=== PATIENT | female | born 1970 | race Caucasian/White ===

== ENCOUNTER 2017-10-09 15:53 | Emergency (ER) | payer OTHER ==
[~2017-10-09] VITALS: Ht 170.2 cm; Wt 81.8 kg
[2017-10-09] MEDS ORDERED: LISI10TA7 PO (16:06)
[2017-10-09] MEDS ORDERED: FOLI1TAB15 PO (16:06)
[2017-10-09] MEDS ORDERED: FERR325T22 PO (16:06)
[2017-10-09] MEDS ORDERED: CHOL500045 PO (16:06)
[2017-10-09] MEDS ORDERED: IBUPROFEN 600 MG TABLET PO ONE (16:30)
[2017-10-09 16:51] LABS: BASOPHILS % (AUTO) 1.1 % (0.0-2.0); EOSINOPHILS % (AUTO) 4.8 % (1.0-6.0); HEMATOCRIT 23.6 % (36-46); HEMOGLOBIN 7.9 g/dL (12.0-16.0); LYMPHOCYTES # (AUTO) 1.9 K/uL (1.0-4.8); LYMPHOCYTES % (AUTO) 29.5 % (22.0-44.0); MEAN CORPUSCULAR HEMOGLOBIN 23.4 pg (26.0-34.0); MEAN CORPUSCULAR HGB CONC 33.6 G/dL (31.0-37.0); MEAN CORPUSCULAR VOLUME 70 fL (80-100); MONOCYTES # (AUTO) 0.7 K/uL (0.1-1.0); MONOCYTES % (AUTO) 11.2 % (2.0-9.0); NEUTROPHILS # (AUTO) 3.4 K/uL (1.8-7.7); NEUTROPHILS % (AUTO) 53.4 % (40.0-70.0); PLATELET COUNT (AUTO) 376 K/uL (150-450); RED BLOOD CELL COUNT(AUTO) 3.39 MIL/uL (4.00-5.20)
[2017-10-09 17:24] VITALS: BP 135/78
== END 2017-10-09 17:39 | disposition home or self-care (01) ==
LOC: EMS 15:54
DX: N93.8 Other specified abnormal uterine and vaginal bleeding (principal); D64.9 Anemia, unspecified
CPT/HCPCS: 99284

== ENCOUNTER 2019-07-13 15:41 | Emergency (ER) | payer OTHER ==
[~2019-07-13 15:41] MED LIST: CHOL500045 PO; FERR325T22 PO; FOLI1TAB15 PO; LISI10TA7 PO
[2019-07-13 16:59] VITALS: BP 141/98
== END 2019-07-13 17:10 | disposition home or self-care (01) ==
LOC: EMS 15:43
DX: S61.237A Puncture wound without foreign body of left little finger without damage to nail, initial encounter (principal); W45.8XXA Other foreign body or object entering through skin, initial encounter; Y93.H2 Activity, gardening and landscaping; Y92.89 Other specified places as the place of occurrence of the external cause; Y99.8 Other external cause status

== ENCOUNTER 2020-02-11 18:29 | Emergency (ER) | payer OTHER ==
[~2020-02-11] VITALS: Ht 170.2 cm; Wt 90.9 kg
[2020-02-11] MEDS ORDERED: CEPHALEXIN MONOHYDRATE 500 MG CAPSULE PO ONE (20:45)
[2020-02-11 20:50] VITALS: BP 148/78
== END 2020-02-11 21:10 | disposition home or self-care (01) ==
LOC: EMS 18:31
DX: L03.115 Cellulitis of right lower limb (principal); I10 Essential (primary) hypertension

== ENCOUNTER 2020-04-24 12:39 | Emergency (ER) | payer OTHER ==
[~2020-04-24] VITALS: Ht 170.2 cm; Wt 81.8 kg
[2020-04-24 14:51] VITALS: BP 154/105
== END 2020-04-24 15:18 | disposition home or self-care (01) ==
LOC: EMS 12:48
DX: M72.2 Plantar fascial fibromatosis (principal); I10 Essential (primary) hypertension; Z98.51 Tubal ligation status

== ENCOUNTER 2021-12-14 19:36 | Emergency (ER) | payer OTHER ==
[~2021-12-14] VITALS: Ht 170.2 cm; Wt 101.4 kg
[2021-12-14 23:00] VITALS: BP 138/79
[2021-12-14] MEDS ORDERED: CEPH-558 PO (23:14)
== END 2021-12-14 23:50 | disposition home or self-care (01) ==
LOC: EMS 19:38
DX: L03.115 Cellulitis of right lower limb (principal); I10 Essential (primary) hypertension
CPT/HCPCS: 99283

== ENCOUNTER 2023-12-10 00:11 | Emergency (ER) | payer OTHER ==
[~2023-12-10] VITALS: Ht 170.2 cm; Wt 90.9 kg
[~2023-12-10 00:11] MED LIST changes: +CEPH-558 PO; -CHOL500045 PO; -FERR325T22 PO; -FOLI1TAB15 PO; -LISI10TA7 PO
[2023-12-10 00:16] VITALS: TEMP 98
[2023-12-10 01:34] LABS: BASOPHILS % (AUTO) 0.5 % (0.0-2.0); EOSINOPHILS % (AUTO) 3.5 % (1.0-6.0); HEMATOCRIT 38.9 % (36-46); HEMOGLOBIN 12.8 g/dL (12.0-16.0); LYMPHOCYTES # (AUTO) 1.6 K/uL (1.0-4.8); LYMPHOCYTES % (AUTO) 16.8 % (22.0-44.0); MEAN CORPUSCULAR HEMOGLOBIN 27.5 pg (26.0-34.0); MEAN CORPUSCULAR HGB CONC 32.9 G/dL (31.0-37.0); MEAN CORPUSCULAR VOLUME 84 fL (80-100); MONOCYTES # (AUTO) 0.8 K/uL (0.1-1.0); MONOCYTES % (AUTO) 8.3 % (2.0-9.0); NEUTROPHILS # (AUTO) 6.6 K/uL (1.8-7.7); NEUTROPHILS % (AUTO) 70.9 % (40.0-70.0); PLATELET COUNT (AUTO) 328 K/uL (150-450); RED BLOOD CELL COUNT(AUTO) 4.66 MIL/uL (4.00-5.20); RED CELL DISTRIBUTION WIDTH 14.2 % (11.5-14.5); WHITE BLOOD COUNT (AUTO) 9.3 K/uL (4.5-11.0)
[2023-12-10 01:41] LABS: ANION GAP 3 mmol/L (8-16); CALCIUM, TOTAL 9.2 mg/dL (8.8-10.5); CARBON DIOXIDE 34 mmol/L (22-29); CHLORIDE 99 mmol/L (98-107); CREATININE 1.01 mg/dL (0.60-1.30); GLOMERULAR FILTR. RATE CALC 58 mL/min (>60); GLUCOSE,RANDOM 200 mg/dL (70-110); POTASSIUM 3.2 mmol/L (3.5-5.1); SODIUM SERUM 136 mmol/L (136-145); UREA NITROGEN, BLOOD 14 mg/dL (7-18)
[2023-12-10 02:02] LABS: LACTIC ACID 1.6 mmol/L (0.4-2.0)
[2023-12-10 02:45] VITALS: BP 142/95; PULSE 98; RESP 18
[2023-12-10] MEDS ORDERED: IBUP-1554 PO (02:51)
[2023-12-10] MEDS ORDERED: HYDR-4062 PO (02:52)
[2023-12-10] MEDS ORDERED: CEPH-558 PO (02:52)
[2023-12-10] MEDS ORDERED: DOXY-354 PO (02:52)
[2023-12-10] MEDS: DOXYCYCLINE HYCLATE 100 MG TABLET PO ONE (02:52)
[2023-12-10] MEDS: HYDROCODONE/ACETAMINOPHEN 5-325 MG TABLET PO ONE (02:52)
[2023-12-10] MEDS: POTASSIUM CHLORIDE 20 MEQ ER TABLET PO ONE (02:53)
[2023-12-10] MEDS: CEPHALEXIN MONOHYDRATE 500 MG CAPSULE PO ONE (02:53)
== END 2023-12-10 03:12 | disposition home or self-care (01) ==
LOC: EMS 00:13
DX: L03.115 Cellulitis of right lower limb (principal); E11.65 Type 2 diabetes mellitus with hyperglycemia; E87.6 Hypokalemia; I10 Essential (primary) hypertension; Z90.710 Acquired absence of both cervix and uterus; Z98.51 Tubal ligation status; Z90.722 Acquired absence of ovaries, bilateral
CPT/HCPCS: 80048; 82962; 83605; 85025; 87040; 99284

== ENCOUNTER 2024-01-27 13:55 | Emergency (ER) | payer OTHER ==
[~2024-01-27] VITALS: Ht 170.2 cm; Wt 99.1 kg
[~2024-01-27 13:55] MED LIST changes: +DOXY-354 PO; +HYDR-4062 PO; +IBUP-1554 PO
[2024-01-27] MEDS ORDERED: ESOM20CA51 PO (14:01)
[2024-01-27] MEDS ORDERED: METF-446 PO (14:01)
[2024-01-27] MEDS ORDERED: HYDR25TA2 PO (14:01)
[2024-01-27] MEDS ORDERED: DULA0.75 SQ (14:01)
[2024-01-27 14:20] LABS: GLUCOMETER DEV NAME(LOC) ER.7; GLUCOSE,POINT OF CARE 179 MG/DL (70-110)
[2024-01-27] MEDS: HYDROCODONE/ACETAMINOPHEN 5-325 MG TABLET PO ONE (18:09)
[2024-01-27 18:20] LABS: BASOPHILS % (AUTO) 0.8 % (0.0-2.0); EOSINOPHILS % (AUTO) 4.9 % (1.0-6.0); HEMATOCRIT 38.4 % (36-46); HEMOGLOBIN 12.6 g/dL (12.0-16.0); LYMPHOCYTES # (AUTO) 2.1 K/uL (1.0-4.8); LYMPHOCYTES % (AUTO) 25.6 % (22.0-44.0); MEAN CORPUSCULAR HEMOGLOBIN 27.5 pg (26.0-34.0); MEAN CORPUSCULAR HGB CONC 32.8 G/dL (31.0-37.0); MEAN CORPUSCULAR VOLUME 84 fL (80-100); MONOCYTES # (AUTO) 0.9 K/uL (0.1-1.0); MONOCYTES % (AUTO) 11.2 % (2.0-9.0); NEUTROPHILS # (AUTO) 4.7 K/uL (1.8-7.7); NEUTROPHILS % (AUTO) 57.5 % (40.0-70.0); PLATELET COUNT (AUTO) 291 K/uL (150-450); RED BLOOD CELL COUNT(AUTO) 4.59 MIL/uL (4.00-5.20); RED CELL DISTRIBUTION WIDTH 14.3 % (11.5-14.5); WHITE BLOOD COUNT (AUTO) 8.1 K/uL (4.5-11.0)
[2024-01-27 18:26] LABS: ANION GAP 9 mmol/L (8-16); CALCIUM, TOTAL 8.5 mg/dL (8.8-10.5); CARBON DIOXIDE 28 mmol/L (22-29); CHLORIDE 100 mmol/L (98-107); CREATININE 0.78 mg/dL (0.60-1.30); GLOMERULAR FILTR. RATE CALC > 60 mL/min (>60); GLUCOSE,RANDOM 149 mg/dL (70-110); POTASSIUM 3.5 mmol/L (3.5-5.1); SODIUM SERUM 137 mmol/L (136-145); UREA NITROGEN, BLOOD 11 mg/dL (7-18)
[2024-01-27 18:29] LABS: ALANINE AMINOTRANSFERASE 83 U/L (12-78); ALBUMIN 3.3 g/dL (3.4-5.0); ALKALINE PHOSPHATASE 101 U/L (46-116); ASPARTATE AMINOTRANSFERASE 46 U/L (15-37); BILIRUBIN,TOTAL 0.3 mg/dL (0.1-1.0); TOTAL PROTEIN, SERUM 6.9 g/dL (6.4-8.2)
[2024-01-27 19:07] LABS: ERYTHROCYTE SEDIMENTATION RATE 14 MM/HR (0-30)
[2024-01-27] MEDS: DOXYCYCLINE HYCLATE 100 MG TABLET PO ONE (20:54)
[2024-01-27 21:44] VITALS: BP 163/92; PULSE 102; RESP 18; TEMP 98.5; O2SAT 99
[2024-01-27] MEDS ORDERED: DOXY-354 PO (21:45)
== END 2024-01-27 22:18 | disposition home or self-care (01) ==
LOC: EMS 13:55
DX: L03.115 Cellulitis of right lower limb (principal); E11.9 Type 2 diabetes mellitus without complications; I10 Essential (primary) hypertension; Z90.710 Acquired absence of both cervix and uterus; Z98.51 Tubal ligation status; Z90.722 Acquired absence of ovaries, bilateral
CPT/HCPCS: 80053; 82962; 85025; 85651; 86140; 99284

== ENCOUNTER 2024-02-24 13:00 | Inpatient (IN) | payer OTHER ==
[~2024-02-24] VITALS: Ht 170.2 cm; Wt 100.0 kg
[~2024-02-24 13:00] MED LIST changes: -CEPH-558 PO; +DULA0.75 SQ; +ESOM20CA51 PO; -HYDR-4062 PO; +HYDR25TA2 PO; -IBUP-1554 PO; +METF-446 PO
[2024-02-24 14:09] LABS: APPEARANCE,URINE HAZY (CLEAR); BILIRUBIN,URINE NEGATIVE (NEGATIVE); COLOR,URINE YELLOW (YELLOW); GLUCOSE, URINE (UA) NEGATIVE (NEGATIVE); KETONES,URINE NEGATIVE (NEGATIVE); LEUKOCYTE ESTERASE ,URINE SMALL (NEGATIVE); NITRATE,URINE NEGATIVE (NEGATIVE); OCCULT BLOOD,URINE LARGE (NEGATIVE); PROTEIN,URINE 30-70 mg/dL (NEGATIVE); UROBILINOGEN,URINE <=1.0 mg/dL (<=1.0)
[2024-02-24 14:23] LABS: RBC,URINE 51-100 /HPF (0-2)
[2024-02-24 14:24] LABS: BACTERIA,URINE Many /HPF (None Seen); SQUAMOUS EPITHELIAL CELL,UR Many /LPF (None Seen)
[2024-02-24] MEDS: SODIUM CHLORIDE 0.9% 1,000 ML IV ONE ×2 (15:34→21:40)
[2024-02-24] MEDS: ACETAMINOPHEN 325 MG TABLET PO ONE (15:34)
[2024-02-24] MEDS: KETOROLAC TROMETHAMINE 30 MG/ML VIAL IVP ONE (15:34)
[2024-02-24 15:42] LABS: EOSINOPHILS % (AUTO) 4.3 % (1.0-6.0); HEMATOCRIT 42.6 % (36-46); HEMOGLOBIN 14.2 g/dL (12.0-16.0); LYMPHOCYTES # (AUTO) 2.4 K/uL (1.0-4.8); LYMPHOCYTES % (AUTO) 28.6 % (22.0-44.0); MEAN CORPUSCULAR HEMOGLOBIN 27.8 pg (26.0-34.0); MEAN CORPUSCULAR HGB CONC 33.4 G/dL (31.0-37.0); MEAN CORPUSCULAR VOLUME 83 fL (80-100); MONOCYTES # (AUTO) 0.9 K/uL (0.1-1.0); MONOCYTES % (AUTO) 10.7 % (2.0-9.0); NEUTROPHILS # (AUTO) 4.7 K/uL (1.8-7.7); NEUTROPHILS % (AUTO) 55.4 % (40.0-70.0); PLATELET COUNT (AUTO) 343 K/uL (150-450); RED BLOOD CELL COUNT(AUTO) 5.12 MIL/uL (4.00-5.20); RED CELL DISTRIBUTION WIDTH 14.6 % (11.5-14.5); WHITE BLOOD COUNT (AUTO) 8.4 K/uL (4.5-11.0)
[2024-02-24 15:51] LABS: ANION GAP 11 mmol/L (8-16); CALCIUM, TOTAL 9.2 mg/dL (8.8-10.5); CARBON DIOXIDE 30 mmol/L (22-29); CHLORIDE 98 mmol/L (98-107); CREATININE 0.78 mg/dL (0.60-1.30); GLOMERULAR FILTR. RATE CALC > 60 mL/min (>60); GLUCOSE,RANDOM 120 mg/dL (70-110); POTASSIUM 3.3 mmol/L (3.5-5.1); SODIUM SERUM 139 mmol/L (136-145); UREA NITROGEN, BLOOD 15 mg/dL (7-18)
[2024-02-24] MEDS ORDERED: IOHEXOL 350 MG/ML 100 ML VIAL ONE (16:09)
[2024-02-24] MEDS ORDERED: 0.9% SODIUM CHLORIDE 10 ML SYRINGE IVP ONE (16:09)
[2024-02-24] MEDS ORDERED: SODIUM CHLORIDE 0.9% 100 ML ONE (16:09)
[2024-02-24 17:56] LABS: APPEARANCE,URINE CLEAR (CLEAR); BILIRUBIN,URINE NEGATIVE (NEGATIVE); COLOR,URINE LIGHT YELLOW (YELLOW); GLUCOSE, URINE (UA) NEGATIVE (NEGATIVE); KETONES,URINE NEGATIVE (NEGATIVE); LEUKOCYTE ESTERASE ,URINE NEGATIVE (NEGATIVE); NITRATE,URINE NEGATIVE (NEGATIVE); OCCULT BLOOD,URINE LARGE (NEGATIVE); PROTEIN,URINE NEGATIVE (NEGATIVE); SPECIFIC GRAVITIY, URINE 1.011 (1.003-1.030); UROBILINOGEN,URINE <=1.0 mg/dL (<=1.0)
[2024-02-24 18:10] LABS: BACTERIA,URINE Moderate /HPF (None Seen); SQUAMOUS EPITHELIAL CELL,UR Moderate /LPF (None Seen)
[2024-02-24] MEDS: PIPERACILLIN/TAZO 3.375 GM/D5W 50 ML IV ONE (20:08)
[2024-02-24] MEDS: TAMSULOSIN HCL 0.4 MG CAPSULE PO ONE (20:55)
[2024-02-24 20:56] LABS: APPEARANCE,URINE CLEAR (CLEAR); BILIRUBIN,URINE NEGATIVE (NEGATIVE); COLOR,URINE COLORLESS (YELLOW); GLUCOSE, URINE (UA) NEGATIVE (NEGATIVE); KETONES,URINE NEGATIVE (NEGATIVE); LEUKOCYTE ESTERASE ,URINE NEGATIVE (NEGATIVE); NITRATE,URINE NEGATIVE (NEGATIVE); OCCULT BLOOD,URINE SMALL (NEGATIVE); PROTEIN,URINE NEGATIVE (NEGATIVE); SPECIFIC GRAVITIY, URINE 1.038 (1.003-1.030); UROBILINOGEN,URINE <=1.0 mg/dL (<=1.0)
[2024-02-24 21:18] LABS: BACTERIA,URINE Few /HPF (None Seen); SQUAMOUS EPITHELIAL CELL,UR Few /LPF (None Seen)
[2024-02-24 21:41] LABS: BILIRUBIN,DIRECT 0.2 mg/dL (0.00-0.20); BILIRUBIN,TOTAL 0.5 mg/dL (0.1-1.0)
[2024-02-24] MEDS ORDERED: ONDANSETRON HCL 4 MG/2 ML VIAL IVP PRN (22:15)
[2024-02-24] MEDS ORDERED: MORPHINE SULFATE 2 MG/ML SYRINGE IVP PRN (22:15)
[2024-02-24] MEDS: RINGERS SOLUTION,LACTATED 1,000 ML IV SCH (22:50)
[2024-02-24] MEDS: POTASSIUM CHLORIDE 20 MEQ ER TABLET PO ONE ×2 (23:00→23:49)
[2024-02-24 23:15] VITALS: BP 140/84; PULSE 83; RESP 18; TEMP 98.1; O2SAT 96
[2024-02-25] MEDS ORDERED: SODIUM CHLORIDE 0.9% 500 ML IV ONE (02:02)
[2024-02-25] MEDS: PIPERACILLIN/TAZO 3.375 GM/D5W 50 ML IV SCH (02:20)
[2024-02-25 05:10] VITALS: BP 122/77; PULSE 83; RESP 18; TEMP 98; O2SAT 98
[2024-02-25 08:06] LABS: GLUCOMETER DEV NAME(LOC) 6N.2B; GLUCOSE,POINT OF CARE 154 MG/DL (70-110)
[2024-02-25 08:39] LABS: BASOPHILS % (AUTO) 0.7 % (0.0-2.0); HEMATOCRIT 42.8 % (36-46); HEMOGLOBIN 14.1 g/dL (12.0-16.0); LYMPHOCYTES # (AUTO) 1.7 K/uL (1.0-4.8); LYMPHOCYTES % (AUTO) 21.4 % (22.0-44.0); MEAN CORPUSCULAR HEMOGLOBIN 27.7 pg (26.0-34.0); MEAN CORPUSCULAR HGB CONC 32.9 G/dL (31.0-37.0); MEAN CORPUSCULAR VOLUME 84 fL (80-100); MONOCYTES % (AUTO) 12.2 % (2.0-9.0); NEUTROPHILS # (AUTO) 4.8 K/uL (1.8-7.7); NEUTROPHILS % (AUTO) 60.7 % (40.0-70.0); PLATELET COUNT (AUTO) 294 K/uL (150-450); RED BLOOD CELL COUNT(AUTO) 5.09 MIL/uL (4.00-5.20); RED CELL DISTRIBUTION WIDTH 14.6 % (11.5-14.5)
[2024-02-25 08:44] VITALS: BP 126/78; PULSE 82; RESP 17; TEMP 98.3; O2SAT 97
[2024-02-25] MEDS: DOCUSATE SODIUM 100 MG CAPSULE PO SCH (08:57)
[2024-02-25 09:11] LABS: ANION GAP 9 mmol/L (8-16); CARBON DIOXIDE 29 mmol/L (22-29); CHLORIDE 98 mmol/L (98-107); GLOMERULAR FILTR. RATE CALC > 60 mL/min (>60); GLUCOSE,RANDOM 147 mg/dL (70-110); POTASSIUM 3.5 mmol/L (3.5-5.1); SODIUM SERUM 136 mmol/L (136-145); UREA NITROGEN, BLOOD 10 mg/dL (7-18)
[2024-02-25] MEDS ORDERED: MEBROFENIN TC99M/MCL ISOTOPE 1 EA INJ INJ ONE (15:30)
[2024-02-25 17:19] VITALS: BP 128/87; PULSE 92; RESP 18; TEMP 97.9; O2SAT 98
[2024-02-25 21:02] VITALS: BP 149/83; PULSE 83; RESP 18; TEMP 97.8; O2SAT 97
[2024-02-25 21:55] LABS: GLUCOMETER DEV NAME(LOC) 6N.2B; GLUCOSE,POINT OF CARE 121 MG/DL (70-110)
[2024-02-26] MEDS: HEPARIN SODIUM,PORCINE 5,000 UNITS/ML VIAL SQ SCH (00:08)
[2024-02-26] MEDS: ACETAMINOPHEN 325 MG TABLET PO PRN (01:16)
[2024-02-26 04:30] VITALS: BP 130/84; PULSE 79; RESP 18; TEMP 98.6; O2SAT 95
[2024-02-26 08:03] VITALS: BP 142/99; PULSE 90; RESP 18; TEMP 98.3; O2SAT 100
[2024-02-26 13:05] LABS: BASOPHILS % (AUTO) 1.2 % (0.0-2.0); EOSINOPHILS % (AUTO) 5.9 % (1.0-6.0); HEMATOCRIT 46.1 % (36-46); HEMOGLOBIN 15.1 g/dL (12.0-16.0); LYMPHOCYTES # (AUTO) 1.9 K/uL (1.0-4.8); MEAN CORPUSCULAR HEMOGLOBIN 27.4 pg (26.0-34.0); MEAN CORPUSCULAR HGB CONC 32.8 G/dL (31.0-37.0); MEAN CORPUSCULAR VOLUME 84 fL (80-100); MONOCYTES # (AUTO) 0.7 K/uL (0.1-1.0); MONOCYTES % (AUTO) 11.4 % (2.0-9.0); NEUTROPHILS # (AUTO) 3.2 K/uL (1.8-7.7); NEUTROPHILS % (AUTO) 51.5 % (40.0-70.0); PLATELET COUNT (AUTO) 329 K/uL (150-450); RED BLOOD CELL COUNT(AUTO) 5.51 MIL/uL (4.00-5.20); RED CELL DISTRIBUTION WIDTH 14.5 % (11.5-14.5); WHITE BLOOD COUNT (AUTO) 6.3 K/uL (4.5-11.0)
[2024-02-26 13:23] LABS: ANION GAP 8 mmol/L (8-16); CALCIUM, TOTAL 9.1 mg/dL (8.8-10.5); CARBON DIOXIDE 31 mmol/L (22-29); CHLORIDE 99 mmol/L (98-107); GLOMERULAR FILTR. RATE CALC > 60 mL/min (>60); GLUCOSE,RANDOM 142 mg/dL (70-110); POTASSIUM 3.9 mmol/L (3.5-5.1); SODIUM SERUM 138 mmol/L (136-145); UREA NITROGEN, BLOOD 8 mg/dL (7-18)
[2024-02-26] MEDS ORDERED: CIPR500T10 PO (14:16)
[2024-02-26] MEDS ORDERED: TAMS0.4C94 PO (14:19)
[2024-02-26] MEDS: INFLUENZA VIRUS VACCINE TVS (6MO+) 2024-25/PF 45 MCG/0.5 ML SYRINGE IM. ONE (15:13)
[2024-02-26 15:40] VITALS: BP 142/92; PULSE 84; RESP 18; TEMP 97.8; O2SAT 100
[2024-02-27 11:31] LABS: GLUCOMETER DEV NAME(LOC) 4E.2; GLUCOSE,POINT OF CARE 155 MG/DL (70-110)
== END 2024-02-26 18:18 | disposition home or self-care (01) ==
LOC: EMS 13:00 → EDH 22:14 → 4E 23:10
PROVIDERS: ADMIT Internal Medicine; ATTEND Internal Medicine
DX: K80.20 Calculus of gallbladder without cholecystitis without obstruction (principal); N13.6 Pyonephrosis; E11.9 Type 2 diabetes mellitus without complications; E87.6 Hypokalemia; I10 Essential (primary) hypertension; G31.84 Mild cognitive impairment of uncertain or unknown etiology; E66.01 Morbid (severe) obesity due to excess calories; R74.01 Elevation of levels of liver transaminase levels; E78.5 Hyperlipidemia, unspecified; Z90.710 Acquired absence of both cervix and uterus; Z87.442 Personal history of urinary calculi; Z79.899 Other long term (current) drug therapy; Z68.34 Body mass index [BMI] 34.0-34.9, adult
CPT/HCPCS: 74177; 76705; 78226; 80048; 80076; 81001; 82962; 83735; 84703; 85025; 87086; 87186; 90686; 99285; A9537; G0378; J1644; J1885; J2543; J7030; J7040; J7050; J7120

== ENCOUNTER 2024-03-01 12:11 | Emergency (ER) | payer OTHER ==
[~2024-03-01] VITALS: Ht 170.2 cm; Wt 100.0 kg
[~2024-03-01 12:11] MED LIST changes: +CIPR500T10 PO; -DOXY-354 PO; +TAMS0.4C94 PO
[2024-03-01 12:22] VITALS: BP 180/104; PULSE 89; RESP 20; TEMP 98.2; O2SAT 99
== END 2024-03-01 15:36 | disposition left against medical advice (07) ==
LOC: EMS 12:11
DX: R19.7 Diarrhea, unspecified (principal); R11.2 Nausea with vomiting, unspecified; Z53.21 Procedure and treatment not carried out due to patient leaving prior to being seen by health care provider

== ENCOUNTER 2025-03-04 21:10 | Emergency (ER) | payer OTHER ==
[~2025-03-04] VITALS: Ht 170.2 cm; Wt 102.3 kg
[~2025-03-04 21:10] MED LIST changes: -CIPR500T10 PO; -ESOM20CA51 PO
[2025-03-04 21:50] LABS: APPEARANCE,URINE TURBID (CLEAR); GLUCOSE, URINE (UA) 300-500 mg/dL (NEGATIVE); LEUKOCYTE ESTERASE ,URINE LARGE (NEGATIVE); NITRATE,URINE POSITIVE (NEGATIVE); OCCULT BLOOD,URINE SMALL (NEGATIVE); SPECIFIC GRAVITIY, URINE 1.029 (1.003-1.030)
[2025-03-04 22:05] LABS: CALCIUM OXALATE CRYSTALS,UR Few /LPF (None Seen); SQUAMOUS EPITHELIAL CELL,UR Moderate /LPF (None Seen)
[2025-03-04 23:00] VITALS: BP 145/103; PULSE 98; RESP 16; TEMP 97.3; O2SAT 99
[2025-03-04] MEDS ORDERED: CEPH-558 PO (23:08)
[2025-03-04] MEDS: LIDOCAINE/PF 1% 2 ML VIAL IM ONE (23:17)
[2025-03-04] MEDS: CefTRIAXone SODIUM 1 GM/VIAL IM ONE (23:17)
[2025-03-04] MEDS: IBUPROFEN 600 MG TABLET PO ONE (23:18)
== END 2025-03-05 00:31 | disposition home or self-care (01) ==
LOC: EMS 21:16
DX: N39.0 Urinary tract infection, site not specified (principal); R30.9 Painful micturition, unspecified; E11.9 Type 2 diabetes mellitus without complications; I10 Essential (primary) hypertension; Z79.899 Other long term (current) drug therapy; Z86.018 Personal history of other benign neoplasm; Z90.710 Acquired absence of both cervix and uterus; Z90.721 Acquired absence of ovaries, unilateral
CPT/HCPCS: 99283; 81001; 82962; 87086; 96372; J0696; J3490; 87077; 87186